=== PATIENT | male | born 1980 | race Asian ===

== ENCOUNTER 2017-11-03 19:29 | Emergency (ER) | END 2017-11-03 20:56 | disposition home or self-care (01) ==

== ENCOUNTER 2018-01-18 16:27 | Emergency (ER) | END 2018-01-18 18:25 | disposition left against medical advice (07) ==

== ENCOUNTER 2018-01-18 20:08 | Emergency (ER) | END 2018-01-18 23:24 | disposition home or self-care (01) ==